=== PATIENT | male | born 1965 | race African-American/Black ===

== ENCOUNTER 2023-08-26 12:28 | Emergency (ER) | payer MEDICAID, OTHER ==
[~2023-08-26] VITALS: Ht 172.7 cm; Wt 91.0 kg
[~2023-08-26 12:28] MED LIST: ALBUTEROL HHN; ASPI-864 PO; CALCIUM; HYDR25TA; PHEN-434 PO; [UNRECOGNIZED DRUG - CODE]
[2023-08-26 12:36] VITALS: BP 139/95; PULSE 89; RESP 18; TEMP 98.2; O2SAT 99
[2023-08-26] MEDS: ACETAMINOPHEN 325MG TABLET PO ONE (14:34)
== END 2023-08-26 15:08 | disposition home or self-care (01) ==
LOC: ER 12:28
DX: K62.89 Other specified diseases of anus and rectum (principal); E11.9 Type 2 diabetes mellitus without complications; Z98.890 Other specified postprocedural states; Z86.59 Personal history of other mental and behavioral disorders
CPT/HCPCS: 99282